=== PATIENT | female | born 1945 | race Caucasian/White ===

== ENCOUNTER 2019-04-30 12:48 | Emergency (ER) | payer MEDICARE, BC ==
[~2019-04-30] VITALS: Ht 157.5 cm; Wt 102.1 kg
--- NOTE | 2019-04-30 13:54 | NUR ---
Patient discharged to home in stable condition with steady gait. Written and verbal after care instructions given to patient and adult son. Patient and family verbalized understanding & compliance of instructions.
== END 2019-04-30 13:57 | disposition home or self-care (01) ==
LOC: ER 12:55
DX: S00.03XA Contusion of scalp, initial encounter (principal); I10 Essential (primary) hypertension; K21.9 Gastro-esophageal reflux disease without esophagitis; Z88.2 Allergy status to sulfonamides; W18.09XA Striking against other object with subsequent fall, initial encounter; Y93.89 Activity, other specified; Y92.89 Other specified places as the place of occurrence of the external cause; Y99.8 Other external cause status
CPT/HCPCS: 70450; A4663